=== PATIENT | female | born 1980 | race Caucasian/White ===

== ENCOUNTER → 2016-11-24 | Outpatient (CLI) | payer OTHER | LOC: FIMAGING 07:21 | PROVIDERS: ATTEND Family Medicine | DX: K80.20 Calculus of gallbladder without cholecystitis without obstruction (principal) ==

== ENCOUNTER → 2019-01-01 | Outpatient (CLI) | payer OTHER | LOC: EMCIMAGING 08:45 | PROVIDERS: ATTEND Obstetrics & Gynecology | DX: Z12.31 Encounter for screening mammogram for malignant neoplasm of breast (principal) | CPT/HCPCS: 77067-PN ==

== ENCOUNTER 2019-02-10 08:56 | Emergency (ER) | payer OTHER ==
--- NOTE | 2019-02-10 09:15 | EDPHY ---
H & P Stated Complaint: Heart palp Time Seen by Provider: 02/10/19 09:00 HPI/ROS: CHIEF COMPLAINT: Heart palpitations post [employer] HISTORY OF PRESENT ILLNESS: 38-year-old female, generally healthy, no history of cardiac disease, no family history of premature coronary artery disease, complaining of palpitations for the past 2 weeks. No chest pain. This started after her father unexpectedly at age 76. No autopsy was performed. He was found on the sofa, possibly atherosclerotic heart disease. Today's anniversary of his . Patient notes history of palpitations and notes internalizing emotionally upsetting scenes in movies. Last evening she was watching an intense vogt seen from the show [employer] and felt palpitations. She did not experience chest pain. Did not experience dyspnea. Did Not experience syncope or near-syncope. PRIMARY CARE PROVIDER: REVIEW OF SYSTEMS: 10 systems reviewed and negative with the exception of the elements mentioned in the history of present illness PAST MEDICAL & SURGICAL HISTORY: No pertinent medical or surgical history . No exogenous estrogen use. SOCIAL HISTORY: Nonsmoker. No drug use. No cocaine use. FAMILY HISTORY no family history of premature coronary artery disease or VTE PHYSICAL EXAM (Prior to examination, patient consented to physical exam, hands were washed and my usual and customary physical exam procedures followed) 1) GENERAL: Well-developed, well-nourished, alert and oriented. Appears anxious. 2) HEAD: Normocephalic, atraumatic 3) HEENT: Pupils equal, round, reactive to light bilaterally. Sclera anicteric. 4) NECK: Full range of motion, no meningeal signs. 5) LUNGS: Clear auscultation bilaterally, no wheezes, no rhonchi, no retractions. 6) HEART: Regular rate and rhythm, no murmur, no heave, no gallop. 7) ABDOMEN: No guarding, no rebound, no focal tenderness, negative McBurney's, negative Crowell's, negative Rovsing's, negative peritoneal sign, 8) MUSCULOSKELETAL: Moving all extremities, no focal areas of tenderness, no obvious trauma. No peripheral edema or discoloration. Negative Homans no palpable cord 9) BACK: No CVA tenderness, no midline vertebral tenderness, no fluctuance, no step-off, no obvious trauma, no visual or palpable abnormality. 10) SKIN: No rash, no petechiae. 11) Psychiatric: Patient is oriented X 3, there is no agitation. 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 asthma, anxiety, h/o headaches and TMJ - Social History Smoking Status: Never smoked Constitutional: Initial Vital Signs Temperature (C) 36.6 C 02/10/19 08:57 Heart Rate 76 02/10/19 08:57 Respiratory Rate 18 02/10/19 08:57 Blood Pressure 124/76 H 02/10/19 08:57 O2 Sat (%) 96 02/10/19 08:57 O2 Delivery Mode Room Air Allergies/Adverse Reactions: Sulfa (Sulfonamide Antibiotics) Allergy (Verified 02/10/19 08:59) Home Medications: Medication Instructions Recorded Calcium 400 mg PO BID 08/30/16 Colace 100 MG (*) 1 tab PO BID 08/30/16 Folic Acid 1 tab PO DAILY 08/30/16 IRON 1 tab PO EVERY OTHER DAY 08/30/16 Dha 1 tab PO DAILY 08/30/16 Vit D3/Folic Acid/B2/B6/B12 1 tab PO DAILY 08/30/16 Medical Decision Making ED Course/Re-evaluation: Patient currently appears well, no chest pain, no dyspnea, negative perc criteria, low pretest suspicion for pulmonary embolus. At this time I do not think that further diagnostic studies indicated in the emergency department beyond her EKG. Today is Tuesday. She has an appoint with her PCP on Tuesday. Recommend she keep this appointment. Recommend she not engage with emotionally upsetting movie/tv scenes. She feels comfortable being discharged home. Care of patient under supervision of secondary supervising physician Dr Solares with whom I discussed case. Departure - Departure Disposition: Home, Routine, Self-Care Clinical Impression: Palpitations Condition: Good Instructions: Heart Palpitations (ED) Additional Instructions: Seek immediate medical attention if you develop chest pain, shortness of breath , feeling that he will pass out, or any other symptoms that concern you Referrals: Brenna Walker MD [Primary Care Provider] - 02/12/19 (Keep your appointment with Dr. Brenna Walker on Tuesday. Take a copy of the EKG.)
--- NOTE | 2019-02-10 09:22 | CPEKG ---
Test Reason : OPEN Blood Pressure : / mmHG Vent. Rate : 067 BPM Atrial Rate : 064 BPM P-R Int : 115 ms QRS Dur : 068 ms QT Int : 418 ms P-R-T Axes : 041 036 003 degrees QTc Int : 442 ms Sinus rhythm Low voltage, precordial leads Confirmed by Otis Solares ([id number] on 02/10/2019 9:21:51 AM Referred By: Otis Solares Confirmed By:Otis Solares
[2019-02-10 09:38] VITALS: BP 109/72
== END 2019-02-10 09:38 | disposition home or self-care (01) ==
DX: R00.2 Palpitations (principal)